=== PATIENT | male | born 1975 | race Caucasian/White ===

== ENCOUNTER 2018-04-16 14:30 | Outpatient (RCR) | payer MEDICAID, SELFPAY ==
--- NOTE | 2018-03-08 09:23 | HP.PTEVAL_ITS ---
Patient's Visit Information ROSARIO SULLIVAN is a 42 year old M referred to Physical Therapy by Richard Pandey with a diagnosis of Plantar Fascitis and spur. Date of Evaluation: 03/08/18 Physical Therapist: Maryse Novoa - Visit Plan Frequency: 2-3x /Week Duration: 6 Weeks Plan: 2X/week for 4-6 weeks for Grastonto plantar fascia, proper stretching of R HC's, joint mobs to improve R ankle DF, US and Ionto with Dex (prescription sent over to pharmacy) with HEP to encourage stretching 3-4 times/day. - Subjective Subjective: Pt reports that he has been having pain in his R foot for 6-7 months. He has been seeing Dr for awhile now but has not gone away. He has pain when he has been sitting or sitting for awhile and goes to get up. He gets pain throughout the day. It pretty much always hurts throughout the day. He sits more than he stands through out the day. He strtches, has a boot, and has had a couple injections. The injections work for awhile and then they wear off. He is stretching at least 3-4 times//day. He pulls the toes, pulls with a towel, some on the step. He is sleeping at night except with nights due to insomina. He walks mostly at work now. He has orthotics. - Pain R foot pain Pain Intensity (Out of 10): 3 Pain Intensity Range: 10 - Objective R ankle AROM: -2 degrees from neutral and 68 degrees PF, 34 degrees INV and 10 degrees EV. L ankle AROM: 1 degree DF and 55 degrees PF, 36 degrees INV and 12 degrees EV. Tight gastroc B but worse on the R compared to the L. Palpation : tender over the R heel and along the medial side of the R plantar fascia. Pt has increase pain with walking on heels on the R and able to raise R foot 1/ 2 normal ROM compared to the L. B PF, EV and INV all 5/5. Gait: walks with hindfoot eversion more on the R than the L and with slightly decreased stance time on the R compared to the L. Pt was not doing his towel stretch or step stretch correctly so spent some time correcting form. - Goals Goal 1:: I HEP Goal Time Frame: 4-6 Weeks Goal 2:: Decrease R foot pain to 1/10 with ADL's Goal Time Frame: 4-6 Weeks Goal 3:: Increase R DF by 5 degrees to (3 degrees DF) to ensure improved gait mechanics Goal Time Frame: 4-6 Weeks - Rehabilitation Potential Rehabilitation Potential: Good - Anticipated Interventions Patient/Client Instruction: Educate patient on: Condition, Plan of Care For the Purpose of:: To decrease pain, To decrease swelling/inflammation, To increase ROM, To improve nutrient delivery to tissue, To improve muscle performance and motor function, To improve ability to perform ADL's, To increase tolerance to activity/condition/position, To improve performance and independence with ADL's, To improve ability of physical actions for home/ community/work/leisure, To improve gait and locomotor functions, To improve health of tissue, To decrease soft tissue restriction, To increase flexibility/ ROM Therapeutic Exercise to Include: Strength training, Flexibilty training, Gait and locomotor training, Passive ROM, Active ROM For the Purpose of:: To decrease pain, To decrease swelling/inflammation, To increase ROM, To improve nutrient delivery to tissue, To improve muscle performance and motor function, To improve ability to perform ADL's, To increase tolerance to activity/condition/position, To improve performance and independence with ADL's, To improve gait and locomotor functions, To improve health of tissue, To decrease soft tissue restriction, To increase flexibility/ ROM Manual Therapy Techniques to Include: Mobilization, Passive ROM, Soft tissue mobilization For the Purpose of:: To decrease pain, To decrease swelling/inflammation, To increase ROM, To increase oxygenation perfusion, To improve muscle performance and motor function, To improve gait and locomotor functions, To improve health of tissue, To decrease soft tissue restriction, To increase flexibility/ROM Iontophoresis (with Dexamethozone, with Acetic acid): Yes Ultrasound (thermal/non thermal): Yes For the Purpose of:: To decrease pain, To decrease swelling/inflammation, To increase ROM, To improve nutrient delivery to tissue, To improve muscle performance and motor function Thank you for the opportunity to evaluate your patient. For Medicare and Medicare HMO plans, please review the plan of care and approve it. It will need to be FAXED BACK to us at [phone] for Medicare purposes. Please let me know if there are questions or concerns regarding this plan of care. Physician Signature: Date:
--- NOTE | 2018-04-16 15:01 | HP.PTDCSUM ---
HP - PT D/C Summary It has been my pleasure to treat ROSARIO SULLIVAN under orders from Richard Pandey, for the diagnosis of Plantar Fascitis and spur for a total of 8 visit(s). Discharge Date: 04/16/18 Please see the following information for a summary of their discharge status. - Subjective Subjective: Pt reports that his heel still hurts but the foot is much better. Pt feels that he has kind of hit a plateau. He sees the Dr Sunday. His heel still hurts all the time. The tightness in the bottom of the foot is much better. - Pain R foot pain Pain Intensity (Out of 10): 2 - Overall Improvement % Improvement: 90 - Objective Objective/Function: R ankle DF 7 degrees - Goals Goal 1:: I HEP Goal Progress: Goal Met Goal 2:: Decrease R foot pain to 1/10 with ADL's Goal Progress: Progressing Goal 3:: Increase R DF by 5 degrees to (3 degrees DF) to ensure improved gait mechanics Goal Progress: Goal Met - Plan Plan: DC PT to HEP. Pt will return to MD on Sunday - D/C Information Discharge Comments: DC PT If there are questions or concerns regarding this patient's physical therapy, please feel free to call me at [phone]. Thank you for the referral of this patient. Sincerely, Maryse Novoa
== END 2018-04-16 19:00 | disposition home or self-care (01) ==
LOC: PT 14:30
PROVIDERS: Family Provider Preventive Medicine Occupational Medicine; PCP Preventive Medicine Occupational Medicine; Visit Provider Podiatrist
DX: M72.2 Plantar fascial fibromatosis (principal); M77.31 Calcaneal spur, right foot
CPT/HCPCS: 97033; 97035; 97110; 97161

== ENCOUNTER → 2018-05-22 09:40 | Outpatient (CLI) | payer BC, MEDICAID, SELFPAY ==
[2018-05-06 09:22] VITALS: BMI 31.6
--- NOTE | 2018-05-22 09:41 | MRI_ITS ---
STUDY: MRI LEFT KNEE REASON FOR EXAM: Medial knee pain, basketball injury 3 months ago. TECHNIQUE: Standardized fat and water weighted pulse sequences were obtained in all 3 orthogonal planes. COMPARISON: None. FINDINGS: Normal medial meniscus. Normal hyaline cartilage of the medial femorotibial compartment. Normal medial femoral condyle and tibial plateau. Normal medial collateral ligamentous complex (MCL). Normal distal semimembranosus, gracilis and semitendinosus tendons. Normal lateral meniscus. Normal hyaline cartilage of the lateral femorotibial compartment. Normal lateral femoral condyle and tibial plateau. Normal proximal tibiofibular articulation. Normal lateral collateral (fibular) ligament. Normal popliteus tendon. Normal biceps femoris tendon. Normal anterior cruciate ligament (ACL). Normal posterior cruciate ligament (PCL). There is lateral tilt of the patella without patellar subluxation (T2 axial image 9). Normal hyaline cartilage of the patellofemoral compartment. Normal medial and lateral patellar retinaculum. Normal visualized quadriceps tendon. Normal patellar tendon. Normal Hoffa's fat pad. There is a very small joint effusion. There is a mildly thickened medial patellar plica (T2 axial image 12; T2 sagittal image 14). The soft tissues are unremarkable. The otherwise visualized osseous structures are unremarkable. MRI/Lower Ext Joint Only (Routine) IMPRESSION: Mildly thickened medial patellar plica. Lateral tilt of the patella. Very small joint effusion. No demonstrated medial meniscal tear. Electronically Signed: Stuart Bucio MD at 11:27 EST Tel , Service support ,
== END ==
PROVIDERS: Family Provider Preventive Medicine Occupational Medicine; PCP Preventive Medicine Occupational Medicine; Referring Provider Physician Assistant; Visit Provider Physician Assistant
DX: S83.242A Other tear of medial meniscus, current injury, left knee, initial encounter (principal); S89.92XA Unspecified injury of left lower leg, initial encounter
CPT/HCPCS: 73721

== ENCOUNTER 2019-05-27 12:00 | Outpatient (RCR) | payer BC, MEDICAID, SELFPAY ==
[2018-05-24 09:03] VITALS: BMI 31.6
--- NOTE | 2019-05-21 12:53 | HP.PTEVAL_ITS ---
Patient's Visit Information ROSARIO SULLIVAN is a 44 year old M referred to Physical Therapy by Richard Pandey DPM with a diagnosis of Plantar Fascitits. Date of Evaluation: 05/21/19 Physical Therapist: Cierra Mckeon DPT - Visit Plan Frequency: 2x /Week Duration: 4 Weeks Plan: Focus on LE strength, flex and muscular endurance. Ultrasound, cupping and stm to plantar fascia - Subjective Findings: Patient reports plantar fascitis, bone spurs, healed fracture and tight achlles- has been bothering him a long time. Insidious onset. Came here for plantar fascitis about a year ago for the right and that one is now good. Worst: 03/27 Agg: sitting for long periods of time, sleeping, getting up/down. Worse in the AM. Achilles is always tight. Stretching makes it better Best: 08/25. Pain is mostly in the bottom of the foot and back of the heel. Describes as dull/achy but shooting when he goes to move it around. No radiating pain. Sleep: not disturbed- does sleep in the night splint- most nights. Does not know if it helps. Has 3 different pairs of shoes- wears orthotics but mostly in his other shoes. Work: remodels homes- always up and moving. Pretty active. The pain level is worse this time than last time. Hurt ankle in 2002 but has never had plantar fascitis before. Has had an MRI a long time ago but just recent x-rays. PMHx: none Meds: Dexalam. - Objective Posture: FH, RS- can correct with verbal cues. Gait: slight deviation- stance on the left LE with poor heel/toe pattern. HR/TR: discomfort with heel raise. SLS: 30 sec increased muscle activation and pain. Observation: mild increase in pronation. ROM: DF: neutral, PF: 60 degrees, Inv: 50 degrees Ever: 30 degrees. Strength: Ankle:4+/5 Knee: 5/5. Flex: Gastroc: severe, Soleus: severe. Palpation: tender along achilles tendon - Goals Goal 1:: Patient will be I with HEP and progression Goal Time Frame: 4-6 Weeks Goal 2:: Patient will demo mild restriction in LE Goal Time Frame: 4-6 Weeks Goal 3:: Patient will demo 10 degrees of DF Goal Time Frame: 4-6 Weeks - Rehabilitation Potential Physical Therapy Diagnosis: Patient presents with hypomobility-he has decreased ROM, strength, flex and muscular endurance leading to increased pain with ADL's. Rehabilitation Potential: Fair - Anticipated Interventions Patient/Client Instruction: Educate patient on: Benefits of Fitness Program Therapeutic Exercise to Include: Strength training, Endurance training, Balance training, Agility training, Body mechanics, Postural training, Flexibilty training, Gait and locomotor training, Passive ROM, Active ROM, Dynamic Lumbar Stabilization For the Purpose of:: To improve muscle performance and motor function TENS: Yes Cryotherapy (ice pack, ice massage): Yes Thermo therapy (hot pack): Yes Ultrasound (thermal/non thermal): Yes For the Purpose of:: To decrease pain Thank you for the opportunity to evaluate your patient. For Medicare and Medicare HMO plans, please review the plan of care and approve it. It will need to be FAXED BACK to us at [phone] for Medicare purposes. For Medicare only, by signing this I certify the plan of care. Please let me know if there are questions or concerns regarding this plan of care. Physician Signature: Date:_
--- NOTE | 2019-06-20 09:10 | HP.PT.NRP ---
HP - Discharge Summary (1) - Patient Information ROSARIO SULLIVAN was seen in my office for initial evaluation on 05/21/19. The following Plan of Care was established for this patient: Initial Frequency: 2x /Week Initial Duration: 4 Weeks - Anticipated Interventions Patient/Client Instruction: Educate patient on: Benefits of Fitness Program Therapeutic Exercise to Include: Strength training, Endurance training, Balance training, Agility training, Body mechanics, Postural training, Flexibilty training, Gait and locomotor training, Passive ROM, Active ROM, Dynamic Lumbar Stabilization For the Purpose of:: To improve muscle performance and motor function TENS: Yes Cryotherapy (ice pack, ice massage): Yes Thermo therapy (hot pack): Yes Ultrasound (thermal/non thermal): Yes For the Purpose of:: To decrease pain This patient was last seen in our office . Pertinent comments regarding their Physical therapy will appear below: Patient attended therapy 2x then did not attend PT for remaining session. Appropriate to d/c and return to MD for further evaluation. At this point I will be discontinuing this patient from physical therapy. I would be happy to see this patient again in the future if found appropriate by the physician. Thank you! VERENA HummelT
== END 2019-05-27 19:00 | disposition home or self-care (01) ==
LOC: PT 12:00
PROVIDERS: Family Provider Preventive Medicine Occupational Medicine; PCP Preventive Medicine Occupational Medicine; Referring Provider Podiatrist; Visit Provider Podiatrist
DX: M72.2 Plantar fascial fibromatosis (principal); M76.62 Achilles tendinitis, left leg; M77.32 Calcaneal spur, left foot
CPT/HCPCS: 97035; 97140; 97161